=== PATIENT | female | born 1955 | race Caucasian/White ===

== ENCOUNTER 2016-10-12 20:26 | Emergency (ER) | payer SELFPAY ==
[~2016-10-12] VITALS: Ht 154.9 cm; Wt 77.1 kg
[2016-10-12 20:26] VITALS: BP 132/94
[~2016-10-12 20:26] MED LIST: HYDR200T PO
[2016-10-12] MEDS ORDERED: HYDROCODONE/APAP 10/325MG 1 EA TABLET ONE (21:32)
[2016-10-12] MEDS ORDERED: HYDROCODONE/APAP 10/325MG 1 EA TABLET PO ONE (22:00)
[2016-10-12] MEDS ORDERED: TDAP [DIPH/PERTUSSIS/TET] 0.5 ML VIAL IM ONE ×3 (22:00→22:21)
== END 2016-10-12 22:40 | disposition home or self-care (01) ==
LOC: ER 20:30
DX: S01.511A Laceration without foreign body of lip, initial encounter (principal); Z88.0 Allergy status to penicillin; W01.0XXA Fall on same level from slipping, tripping and stumbling without subsequent striking against object, initial encounter; Y93.89 Activity, other specified; Y92.89 Other specified places as the place of occurrence of the external cause; Y99.9 Unspecified external cause status
CPT/HCPCS: 90715; A4606; A6402; Z7610

== ENCOUNTER 2016-10-19 20:46 | Emergency (ER) | payer SELFPAY ==
[~2016-10-19] VITALS: Ht 160 cm; Wt 74.8 kg
[2016-10-19 20:46] VITALS: BP 135/74
[2016-10-19] MEDS ORDERED: HYDROCODONE/APAP 5/325MG 1 EACH TABLET ONE (21:10)
[2016-10-19] MEDS: HYDROCODONE/APAP 5/325MG 1 EACH TABLET PO STA (21:13)
== END 2016-10-19 23:09 | disposition home or self-care (01) ==
LOC: ER 20:49
DX: S01.511D Laceration without foreign body of lip, subsequent encounter (principal); Z88.0 Allergy status to penicillin
CPT/HCPCS: A4606; A6402; Z7610